=== PATIENT | male | born 1945 | race Caucasian/White ===

== ENCOUNTER → 2018-03-19 | Outpatient (CLI) | payer MEDICARE, BC, OTHER ==
[~2018-03-19] MED LIST: ALEV220C; ALLO300T2 PO; AMLO5 PO; AVOD0.5C PO; CYAN25003 SL; ESZO2 PO; ESZO3TAB4 PO; FERR1TAB7; FERR325T18 PO; FLUO1TAB3 PO; FLUO60TA PO; FURO20TA PO; ISOS60TA PO; MAGN500T4 PO; METO25TA3 PO; NITR1SUB3 SL; PRAD150C PO; ROSU10 PO; SERO100T PO; TAMS0.4C4 PO; TRAM50 PO; VITA10007 PO; VITA2000 PO; VITA250T3 PO; VITA500T35 PO
[2018-03-19 09:09] LABS: INTERNATIONAL NORMALIZED RATIO 1.2 RATIO; PROTHROMBIN TIME - PATIENT 12.2 SEC (9.8-11.6)
[2018-03-19 09:10] LABS: BASOPHIL % 0.9 % (0.0-2.0); EOSINOPHIL # 0.2 TH/MM3 (0-0.4); EOSINOPHIL % 4.2 % (0.0-4.0); HEMOGLOBIN 13.4 GM/DL (13.0-17.0); LYMPHOCYTE # 1.6 TH/MM3 (1.0-4.8); MEAN CORPUSCULAR HEMOGLOBIN 31.4 PG (27.0-34.0); MEAN CORPUSCULAR HGB CONC 32.7 % (32.0-36.0); MONO % 7.3 % (0.0-8.0); MONOCYTE # 0.4 TH/MM3 (0-0.9); NEUT % 56.6 % (16.0-70.0); PLATELET COUNT 211 TH/MM3 (150-450); RED BLOOD COUNT 4.27 MIL/MM3 (4.50-5.90); RED CELL DISTRIBUTION WIDTH 14.7 % (11.6-17.2); WHITE BLOOD COUNT 5.3 TH/MM3 (4.0-11.0)
[2018-03-19 09:25] LABS: ALBUMIN 3.5 GM/DL (3.4-5.0); AST (GOT) 43 U/L (15-37); BLOOD UREA NITROGEN 11 MG/DL (7-18); CALCIUM 8.6 MG/DL (8.5-10.1); CHLORIDE 107 MEQ/L (98-107); CREATININE 1.13 MG/DL (0.60-1.30); GLOMERULAR FILTRATION RATE 64 ML/MIN (>89); GLUCOSE,FASTING 88 MG/DL (74-99); SODIUM (NA) 144 MEQ/L (136-145)
[2018-03-19 09:26] LABS: ALT (GPT) 37 U/L (12-78)
[2018-03-19 09:28] LABS: ALKALINE PHOSPHATASE 108 U/L (45-117); TOTAL BILIRUBIN ADULT 0.5 MG/DL (0.2-1.0); TOTAL PROTEIN 7.1 GM/DL (6.4-8.2)
[2018-03-19 09:34] LABS: BILIRUBIN, URINE NEG (NEG); BLOOD, URINE NEG (NEG); GLUCOSE,URINE NEG (NEG); KETONE, URINE NEG (NEG); MUCUS URINE FEW /lpf (OCC); NITRITE,URINE NEG (NEG); URINE COLOR YELLOW (YELLW/STRAW); URINE LEUKOCYTE ESTERASE NEG (NEG)
--- NOTE | 2018-03-19 10:14 | RADRPT ---
EXAM DATE: 03/19/2018 9:40 AM EDT AGE/SEX: 73 years / Male INDICATIONS: Evaluate for pneumothorax, pneumonia or communicable disease. Preop chest for back surg shaheen CLINICAL DATA: This is the patient's initial encounter. Patient reports that signs and symptoms have been present for 1 day and indicates a pain score of 0/10. MEDICAL/SURGICAL HISTORY: Cardiovascular disease. CABG. left upper lung removed COMPARISON: No prior exams available for comparison. FINDINGS: No significant focal pleural or parenchymal opacities. Cardiac silhouette is mildly enlarged. Postsur gical features of prior median sternotomy and cardiac surgery. Right shoulder arthroplasty partially imaged. Bony thorax is intact. CONCLUSION: 1. Mild cardiomegaly. 2. No acute cardiopulmonary disease. Electronically signed by: Kalin Infante MD 03/19/2018 10:12 AM EDT
--- NOTE | 2018-03-19 17:39 | EKG ---
Date Performed: 03/19/2018 Time Performed: 08:37:23 PTAGE: 73 years EKG: ATRIAL FIBRILLATION ABNORMAL RHYTHM ECG NO PREVIOUS TRACING DOCTOR: Sangeeta Mccall Interpretating Date/Time 03/19/2018 17:39:13
== END ==
LOC: CPRE 08:13
PROVIDERS: ATTEND Neurological Surgery
DX: Z01.810 Encounter for preprocedural cardiovascular examination (principal); Z01.811 Encounter for preprocedural respiratory examination; Z01.812 Encounter for preprocedural laboratory examination; Z01.818 Encounter for other preprocedural examination; M48.061 Spinal stenosis, lumbar region without neurogenic claudication; I48.91 Unspecified atrial fibrillation; R94.31 Abnormal electrocardiogram [ECG] [EKG]
CPT/HCPCS: 36415; 71046; 80053; 81001; 85025; 85610; 85730; 87640; 87641; 93005